=== PATIENT | female | born 1980 | race Caucasian/White ===

== ENCOUNTER 2017-05-18 01:35 | Emergency (ER) | payer BC, OTHER ==
[~2017-05-18] VITALS: Ht 165.1 cm; Wt 72.6 kg
== END 2017-05-18 05:17 | disposition home or self-care (01) ==
LOC: EDBD 01:35 → ED 01:35
DX: F10.129 Alcohol abuse with intoxication, unspecified (principal)
CPT/HCPCS: 96361; 96374; 99283; J2405; J7030